=== PATIENT | male | born 1995 | race Hispanic/Latino ===

== ENCOUNTER 2023-12-10 19:35 | Emergency (ER) | END 2023-12-10 20:38 | disposition left against medical advice (07) | DRG 951 | LOC: ED 19:35 → LWOBS 20:20 | DX: Z53.21 Procedure and treatment not carried out due to patient leaving prior to being seen by health care provider (principal) ==

== ENCOUNTER 2024-05-23 20:05 | Emergency (ER) | payer SELFPAY ==
[~2024-05-23] VITALS: Ht 172.7 cm; Wt 54.0 kg
[2024-05-23] MEDS ORDERED: IBUPROFEN 600 MG/TAB PO ONE (20:50)
[2024-05-23] MEDS ORDERED: ACETAMINOPHEN 500 MG TAB PO ONE (20:50)
[2024-05-23] MEDS ORDERED: PENICILLIN G BENZATHINE 1.2 MU/2 ML SYR IM ONE (20:50)
[2024-05-23 20:56] VITALS: BP 134/70
[2024-05-23 21:00] VITALS: BP 124/71
[2024-05-23 21:15] VITALS: BP 131/78
[2024-05-23 21:48] VITALS: BP 131/78
== END 2024-05-23 21:48 | disposition home or self-care (01) | DRG 153 ==
LOC: ED 20:05
DX: J03.90 Acute tonsillitis, unspecified (principal); Z72.0 Tobacco use
CPT/HCPCS: J0561

== ENCOUNTER 2024-08-05 18:14 | Emergency (ER) | payer SELFPAY ==
[~2024-08-05] VITALS: Ht 172.7 cm; Wt 65.0 kg
[2024-08-05 19:19] VITALS: BP 135/79
[2024-08-05] MEDS ORDERED: VALTREX1 GM PO (19:19)
[2024-08-05 19:20] VITALS: BP 126/90
[2024-08-05 19:31] VITALS: BP 126/90
== END 2024-08-05 19:31 | disposition home or self-care (01) | DRG 596 ==
LOC: ED 18:14
DX: B02.9 Zoster without complications (principal); Z72.0 Tobacco use